=== PATIENT | female | born 1990 | race Caucasian/White ===

== ENCOUNTER → 2017-06-28 | Outpatient (CLI) | payer OTHER ==
[~2017-06-28] MED LIST: IOHEXOL 180 MG/ML 10 ML VIAL. ONE
--- NOTE | 2017-06-28 17:38 | PAIN ---
DATE OF SERVICE: 06/28/2017 INITIAL CONSULTATION FOR PAIN CLINIC CHIEF COMPLAINT: Headache. HISTORY OF PRESENT ILLNESS: This is a 27-year-old female who presents with history of pain following an attempted lumbar epidural catheter placement for labor pain about one week ago exactly. 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 The patient reports that since the day after her baby was born, she has had significant pain in the top of her head, back of her head, shoulders, neck, much worse with standing or sitting upright, much better with lying down to the point where the headache almost goes away when she is lying supine. The patient reports it has gotten slightly better over the past 2 to 3 days, but for the past 6 or 7 days has been fairly significant up to that point. The patient reports she has been pushing fluids, also caffeine, reports now the pain is constant, sharp, stabbing, throbbing, changes with position again, much better lying down, much worse with sitting or standing, where she is losing some ability to balance and dizziness because of the headache when she is walking. The patient reports no motor or sensory deficits. No bowel or bladder incontinence, no other complaints except for the headache. The patient reports her disability rating from 0-10, 10 being the worst, is an 8 with family and home responsibilities, recreation, social activity, occupation, sexual behavior and self-care and 3 with life support activities. The patient has tried ibuprofen as well as Fioricet, neither one was helping the pain much at all. PAST MEDICAL HISTORY: Significant for only previous childbirth, some ringing in the ears in the past as well as the patient in very good health. No previous surgeries. CURRENT MEDICATIONS: Include ibuprofen, Fioricet and vitamins. ALLERGIES: The patient has no known drug allergies. FAMILY HISTORY: Significant for hypertension, diabetes and cancers. SOCIAL HISTORY: The patient does not smoke, does not drink. Has 2 children now living at home, one 1-week old and is , lives with her spouse and lives in [place], [place]. REVIEW OF SYSTEMS: The patient's review of systems is positive for those items mentioned in history of present illness. All systems reviewed and otherwise negative. It is complete, full and well documented on the patient's chart. PHYSICAL EXAMINATION: VITAL SIGNS: Today, the patient's blood pressure here 126/77, pulse 72, respirations 18, temperature 98.0 degrees Fahrenheit. Height is 5 feet 5 inches, weighs 226 pounds. GENERAL: The patient is awake, alert, oriented, appropriate, very pleasant demeanor. HEENT: Head shows normocephalic, atraumatic. Extraocular movements are intact, symmetrical. Oral cavity, mucous membranes are moist and pink. Dentition is intact. NECK: Shows anterior throat supple without palpable lymphadenopathy noted. Swallow reflex is symmetrical. Neck shows full rotational motion of cervical spine, both laterally greater than 45 degrees, right and left as well as full extension, full forward flexion ____ without difficulty or any rigidity. CHEST: Shows normal on inspection. Breath sounds clear to auscultation bilaterally. HEART: Shows S1 and S2 clear. No murmurs auscultated. ABDOMEN: Obese, soft, , nontender, nondistended. BACK: Shows spine grossly midline. Normal appearing thoracic kyphotic curvature and lumbar lordotic curvature at approximately the L1 level, there are multiple areas of scabbed puncture sites from previous needle attempts and some minor bruising under the skin as well. The patient shows good rotation and motion of the lumbar spine without difficulty. Right and left lateral greater than 10 degrees as well as extension greater than 10 degrees, forward flexion to 45 degrees without difficulty. EXTREMITIES: Lower extremities show deep tendon reflexes at 2+ in the patellar, 1+ tendo calcaneus tendons. Motor exam is strong with 5/5 dorsiflexion, extension, quadriceps and hamstring flexion and equal. The patient is able to stand, stand on her toes, walks without any antalgic gait, does not appear to favor the right or left lower extremity. No assistive devices. IMPRESSION: This is a 27-year-old female with previous headaches from post-dural puncture with positional headache now without fevers, without nuchal rigidity, with improvement in supine position, worse with standing or sitting. PLAN: Options were discussed with the patient including conservative medical management and interventional techniques and as she has been doing conservative medical management and medication with hydration and caffeine without significant improvement to her estimation, she would like to proceed with intervention. We discussed a lumbar epidural blood patch using description as well as anatomical models to describe the procedure. Risks were then discussed including, but not limited to bleeding, infection, possibility of epidural hematoma and subsequent neurologic compromise, dural punctures and worsening of headache as well as poor results regarding pain control. The patient understands and wishes to proceed. The patient will return to clinic on an as needed basis at this time, ask to call the clinic in 1 week ____ progress report at that time. DIAGNOSES: Post-dural puncture headache. PROCEDURE: Lumbar epidural blood patch using local anesthetic under sterile prep and drape using a C-arm fluoroscopic guidance. The patient's L3-4 level was accessed in the midline translaminar approach with preservative-free normal saline loss of resistance technique without difficulty. Sterile blood draw on the right hand was taken, 10 mL of patient's own blood then sterilely transferred to the epidural space without difficulty. Needle was withdrawn, Band-Aid applied. The patient tolerated procedure well, had no complications. SHANNON BLOUNT MD DR: KAY/myla JOB#: [id number] / [id number]
== END | disposition home or self-care (01) ==
LOC: PNCL 08:42
PROVIDERS: ATTEND Anesthesiology
DX: G97.1 Other reaction to spinal and lumbar puncture (principal); Z83.3 Family history of diabetes mellitus; Z82.49 Family history of ischemic heart disease and other diseases of the circulatory system
CPT/HCPCS: 62273

== ENCOUNTER 2020-07-21 05:15 | Inpatient (IN) | payer MEDICAID ==
[~2020-07-21] VITALS: Ht 165.1 cm; Wt 113.4 kg
[2020-07-21 05:30] VITALS: BP 135/80
[2020-07-21] MEDS ORDERED: ACETAMINOPHEN 325 MG TABLET. PO PRN ×2 (05:30→06:45)
[2020-07-21] MEDS ORDERED: IV RINGERS,LACTATED 1000ML 1,000 ML IV SCH (06:31)
[2020-07-21 06:41] LABS: AMPHETAMINE/METHAMPHETAMINE NEG (NEG); BARBITURATES NEG (NEG); BENZODIAZEPINES NEG (NEG); CANNABINOIDS NEG (NEG); COCAINE NEG (NEG); METHADONE NEG (NEG); OPIATES NEG (NEG); PHENCYCLIDINE NEG (NEG)
[2020-07-21] MEDS ORDERED: ONDANSETRON PF 4 MG/2 ML VIAL. IVP PRN (06:45)
[2020-07-21] MEDS ORDERED: BUTORPHANOL 2 MG/ML VIAL. IVP PRN (06:45)
[2020-07-21] MEDS ORDERED: LIDOCAINE 1% PF 30 ML VIAL. INJ PRN (06:45)
[2020-07-21] MEDS ORDERED: OXYTOCIN 30 UNIT/500 ML PREMIX 500 ML IV PRN ×4 (06:45→10:45)
[2020-07-21] MEDS ORDERED: TERBUTALINE 1 MG/ML VIAL. SQ PRN (06:45)
[2020-07-21] MEDS ORDERED: 0.9 % SODIUM CHLORIDE 10 ML DISP.SYRIN. IV PRN ×2 (06:45→10:45)
[2020-07-21] MEDS ORDERED: IV RINGERS,LACTATED 1000ML 1,000 ML IV PRN (06:45)
[2020-07-21] MEDS ORDERED: IBUPROFEN 400 MG TABLET. PO PRN (06:45)
[2020-07-21 06:49] LABS: BILIRUBIN,URINE NEGATIVE (NEG); CLARITY,URINE CLEAR; COLOR,URINE YELLOW; NITRITE,URINE NEGATIVE (NEG); PH,URINE 6.5 (<5.0-8.0); PROTEIN,URINE NEGATIVE (NEG-TRACE); UROBILINOGEN,URINE 0.2 mg/dL (0.2 mg/dL)
[2020-07-21] MEDS ORDERED: PENICILLIN G K 5,000,000 UNIT in IV DEXTROSE 5% 100ML 100 ML IV ONE (07:00)
[2020-07-21 07:02] LABS: BACTERIA,URINE MODERATE /HPF (0-FEW); SQUAMOUS EPITHELIAL CELL,UR FEW /LPF
[2020-07-21 07:03] LABS: AMORPHOUS SEDIMENT,UR PRESENT /HPF
[2020-07-21] MEDS: IV RINGERS,LACTATED 1000ML 1,000 ML IV PRN ×3 (07:18→18:33)
[2020-07-21] MEDS: fentaNYL PF VIAL 100 MCG/2 ML VIAL IVP PRN ×2 (07:32→09:02)
[2020-07-21 07:34] LABS: BASO # 0.1 x10^3/uL (0.0-0.2); BASO % 1 % (0-3); EOS # 0.1 x10^3/uL (0.0-0.7); EOS % 1 % (0-3); HEMATOCRIT 39.3 % (36.0-47.0); HEMOGLOBIN 13.3 g/dL (12.0-15.5); LYMPH # 3.1 x10^3/uL (1.0-4.8); LYMPH % 19 % (24-48); MEAN CORPUSCULAR HEMOGLOBIN 29 pg (25-35); MEAN CORPUSCULAR HGB CONC 34 g/dL (31-37); MEAN CORPUSCULAR VOLUME 87 fL (79-100); MONO # 0.8 x10^3/uL (0.0-1.1); MONO % 5 % (0-9); NEUT # 12.3 x10^3/uL (1.8-7.7); NEUT % 75 % (31-73); PLATELET COUNT 258 x10^3/uL (140-400); RED BLOOD COUNT 4.53 x10^6/uL (3.50-5.40); RED CELL DISTRIBUTION WIDTH 15.7 % (11.5-14.5); WHITE BLOOD COUNT 16.4 x10^3/uL (4.0-11.0)
[2020-07-21] MEDS ORDERED: OXYTOCIN PREMIX 30 UNIT/500 ML NS BAG. IV ONE (08:00)
--- NOTE | 2020-07-21 08:42 | PDOC1 ---
OB - History Hx of Present Care: Good Care Ultrasounds: Normal mid trimester US Obstetrical Complications: None Medical Complications: None Past Family/Social History * Past Medical, Surgical, Family and Obstetric Histories reviewed from chart. Rubella: Immune RPR/VDRL: Negative GBS Status: Positive HBsAG: Negative OB - Chief Complaint & HPI Date of Admission: Date of Admission: Jul 21, 2020 at 05:15 Chief Complaint/History : 4 Para: 2 EGA: 40 Reason for admission: active labor Admission Nurse Assessment Rev: Yes OB - Admission Exam Physical Exam Vitals: VS - Last 72 Hours, by Label Date Time Temp Pulse Resp B/P (MAP) Pulse Ox O2 Delivery O2 Flow Rate FiO2 07/21/20 07:32 22 Room Air 07/21/20 05:30 98.0 135 20 135/80 (98) 97 98.0 HEENT: Normal Heart: Regular Rate Lungs: Clear Abdomen: Gravid, Non tender, Soft Extremities: Edema Reflexes: Normal Cervical Dilatation: 2cm Effacement: 75% Station: -3 Membranes: Intact Heart Rate: Normal Accelerations: Accelerations Present Decelerations: No decelerations Contractions on Admission: < 5 Minutes Apart Intensity: Firm Text A: 40 wks IUP GBS positive P: Admit for labor management. Start Pen G prophylaxis for GBS status. LISS SANDOVAL Jr, MD Jul 21, 2020 08:42
[2020-07-21] MEDS ORDERED: CITRIC ACID/SODIUM CITRATE 30 ML SOLUTION. PO ONE (09:15)
[2020-07-21] MEDS ORDERED: MORPHINE PF 10 MG/10 ML AMPUL. ONE (09:28)
[2020-07-21] MEDS ORDERED: fentaNYL PF VIAL 100 MCG/2 ML VIAL ONE (09:28)
[2020-07-21] MEDS ORDERED: MIDAZOLAM HCL/PF 2 MG/2 ML VIAL. ONE (09:50)
[2020-07-21] MEDS ORDERED: KETAMINE HCL IN NACL, ISO-OSM 50 MG/5 ML SYRINGE ONE (09:50)
[2020-07-21] MEDS ORDERED: OXYTOCIN 10 UNIT/ML VIAL. ONE ×4 (10:04)
[2020-07-21] MEDS ORDERED: PHENYLEPHRINE in 0.9% NACL PF 1 MG/10 ML SYRINGE. IV ONE ×2 (10:04→10:10)
[2020-07-21] MEDS ORDERED: MAG HYDROX/ALUMINUM HYD/SIMETH 30 ML ORAL.SUSP PO PRN (10:45)
[2020-07-21] MEDS ORDERED: ONDANSETRON PF 4 MG/2 ML VIAL. IV PRN (10:45)
[2020-07-21] MEDS ORDERED: SIMETHICONE 80 MG TAB.CHEW PO PRN (10:45)
[2020-07-21] MEDS ORDERED: diphenhydrAMINE ORAL ELIXIR 12.5 MG/5 ML ML PO PRN (10:45)
[2020-07-21] MEDS ORDERED: ZOLPIDEM 5 MG TABLET. PO PRN (10:45)
--- NOTE | 2020-07-21 10:45 | PDOC4 ---
OB Operative Note Date: Jul 21, 2020 PRE OP DIAGNOSIS: Other (40 wks IUP, Face Presentation) POST OP DIAGNOSIS: Other (Same) OPERATION PERFORMED: [facility] Surgeon Dr. Kyle Anesthesia: Regional (Spinal) Blood Loss 800 ml Specimen placenta and OB Findings: Position (Vertex), Sex (Male), (), Weight (7 Lbs. 11 oz) Complications none Additional Remarks pt. LISS Love Jr, MD Jul 21, 2020 10:44
[2020-07-21] MEDS ORDERED: ceFAZolin SODIUM IV Push 1 GM VIAL. IVP ONE (10:51)
[2020-07-21] MEDS: PENICILLIN G K 2,500,000 UNIT in IV DEXTROSE 5% 50 ML IV SCH ×2 (11:00→15:00)
[2020-07-21] MEDS ORDERED: KETOROLAC 30 MG/ML VIAL. IV PRN (11:30)
[2020-07-21] MEDS: MULTIVITAMIN with MINERAL TABLET. PO SCH (12:00)
[2020-07-21] MEDS: KETOROLAC 30 MG/ML VIAL. IV PRN ×2 (12:19→18:20)
[2020-07-21 14:15] VITALS: BP 106/58
--- NOTE | 2020-07-21 14:15 | NUR ---
Pt to room 337 per bed S/P C/S. Pt alert and oriented, at bedside. Pt bleeding minimal and pt denies pain at this time. Call light in reach, ice chips given per pts request.
[2020-07-21 15:15] VITALS: BP 111/65
[2020-07-21] MEDS: FERROUS SULFATE 325 MG TABLET. PO SCH (17:00)
--- NOTE | 2020-07-21 17:35 | OP ---
DATE OF SURGERY: 07/21/2020 PREOPERATIVE DIAGNOSES: 1. A 40 weeks' intrauterine . 2. Persistent face presentation. POSTOPERATIVE DIAGNOSES: 1. A 40 weeks' intrauterine . 2. Persistent face presentation. PROCEDURE: Primary low transverse section. SURGEON: Liss Kyle MD ANESTHESIA: Spinal. ESTIMATED BLOOD LOSS: 800 mL. COMPLICATIONS: None. FINDINGS: Viable male , Apgars 7, 8, 9. Weight 7 pounds 11 ounces. Three-vessel cord placenta delivered manually. SUMMARY: A 30-year-old 4, para 2 at 40 weeks, presented in active labor. The patient progressed up to 7 cm; however, she had a face presentation that continued to persist with omentum posterior. The patient was counseled on risks, benefits and expectations for section and voiced clear understanding to proceed. DESCRIPTION OF PROCEDURE: The patient was taken to surgery suite and placed in dorsal supine position. She was prepped with ChloraPrep and draped in sterile fashion. After adequate anesthesia, Pfannenstiel skin incision was made with scalpel down to the fascia. Fascia was extended laterally using curved Faith scissors. The superior edge of fascia was grasped with two Joaquina clamps and dissected free of the abdominal rectus muscle using blunt dissection along with Bovie cautery. The same process took place inferiorly. The abdominal rectus muscle dissected bluntly at the midline. The peritoneum was grasped with 2 hemostats and entered sharply with Metzenbaum scissors. This incision was extended superiorly as well as inferiorly. The Jarad ring retractor was placed. Low transverse hysterotomy incision was made with scalpel down to the amniotic sac. Hysterotomy incision was extended laterally and superiorly digitally. The 's head was then palpated and rotated around. Vacuum was attempted to elevate the head; however, after one pump off, we continued with manual manipulation of the head, in which once the head was palpated firmly and fundal pressure was provided, the head was delivered, atraumatic manner. With additional fundal pressure, the anterior shoulder was delivered followed by posterior shoulder. Rest of the male was delivered. was suctioned with a bulb syringe orally and nasally. The umbilical cord was clamped twice and cut and viable male infant was handed to waiting nursing staff. Umbilical cord blood as well as arterial pH was obtained. Three-vessel cord placenta was delivered manually. The uterus was then exteriorized and cleared of clot and debris with moist lap. Hysterotomy incision was reapproximated using #1 Vicryl suture in running locked fashion, imbricated layer of #1 Vicryl suture in running fashion was performed. About 4 [id number] sutures were placed near the midline in the left apex of the hysterotomy incision including the left uterine artery ligation using #1 Vicryl suture. The hysterotomy incision was then hemostatic. The uterus palpated firm. Fallopian tubes and ovaries appeared normal bilaterally. Posterior cul-de-sac was cleared of clot and debris with a moist lap. The uterus was then returned to the abdomen. Pericolic gutters were cleared of clot and debris with a moist lap. The Jarad ring retractor was removed. The hysterotomy incision was reviewed and was hemostatic. Peritoneum was reapproximated using #1 Vicryl suture in running fashion. Abdominal rectus muscle was reapproximated using #1 Vicryl suture in running fashion. Fascia was reapproximated using Stratafix in running fashion. Skin was reapproximated using 4-0 Vicryl suture in subcuticular manner. The patient tolerated the procedure well and was taken to recovery room in stable condition. Sponge and needle count correct x 3. LISS KYLE MD DR: LOIDA/myla JOB#: [id number] / [id number]
[2020-07-21 18:09] VITALS: BP 94/49
[2020-07-21 22:27] VITALS: BP 96/41
[2020-07-22] MEDS: KETOROLAC 30 MG/ML VIAL. IV PRN (02:19)
[2020-07-22 02:27] VITALS: BP 99/53
[2020-07-22 06:07] VITALS: BP 86/44
[2020-07-22 07:08] LABS: BASO # 0.1 x10^3/uL (0.0-0.2); BASO % 1 % (0-3); EOS # 0.1 x10^3/uL (0.0-0.7); EOS % 1 % (0-3); HEMATOCRIT 29.8 % (36.0-47.0); LYMPH # 2.9 x10^3/uL (1.0-4.8); LYMPH % 26 % (24-48); MEAN CORPUSCULAR HEMOGLOBIN 30 pg (25-35); MEAN CORPUSCULAR HGB CONC 34 g/dL (31-37); MEAN CORPUSCULAR VOLUME 88 fL (79-100); MONO # 0.7 x10^3/uL (0.0-1.1); MONO % 7 % (0-9); NEUT # 7.5 x10^3/uL (1.8-7.7); NEUT % 66 % (31-73); PLATELET COUNT 179 x10^3/uL (140-400); RED BLOOD COUNT 3.38 x10^6/uL (3.50-5.40); RED CELL DISTRIBUTION WIDTH 15.4 % (11.5-14.5); WHITE BLOOD COUNT 11.3 x10^3/uL (4.0-11.0)
[2020-07-22] MEDS: oxyCODONE/APAP 5/325 1 TAB TABLET PO PRN ×4 (08:22→21:35)
[2020-07-22] MEDS: DOCUSATE SODIUM 100 MG CAPSULE. PO PRN (08:22)
[2020-07-22] MEDS: FERROUS SULFATE 325 MG TABLET. PO SCH ×2 (08:22→17:31)
[2020-07-22] MEDS: MULTIVITAMIN with MINERAL TABLET. PO SCH (08:22)
[2020-07-22 10:15] VITALS: BP 112/65
[2020-07-22] MEDS: IBUPROFEN 400 MG TABLET. PO PRN ×2 (12:47→20:55)
--- NOTE | 2020-07-22 16:26 | PDOC ---
OB Progress Note Date of Service 07/22/20 Time of Evaluation 1625 Notes Pt. feeling well. No complaints. Pain controlled. Pt. tolerating regular diet, ambulating in room and voiding without difficulty. Lab Laboratory Tests Test 07/21/20 06:15 07/21/20 06:20 07/21/20 07:21 07/22/20 06:35 SARS-CoV-2 Antigen (Rapid) Negative (NEGATIVE) Urine Collection Type Unknown Urine Color Yellow Urine Clarity Clear Urine pH 6.5 (<5.0-8.0) Urine Specific [place] 1.010 (1.000-1.030) Urine Protein Negative mg/dL (NEG-TRACE) Urine Glucose (UA) Negative mg/dL (NEG) Urine Ketones (Stick) Negative mg/dL (NEG) Urine Blood Small (NEG) Urine Nitrite Negative (NEG) Urine Bilirubin Negative (NEG) Urine Urobilinogen Dipstick 0.2 mg/dL (0.2 mg/dL) Urine Leukocyte Esterase Moderate (NEG) Urine RBC 3-5 /HPF (0-2) Urine WBC 11-20 /HPF (0-4) Urine Squamous Epithelial Cells Few /LPF Urine Amorphous Sediment Present /HPF Urine Bacteria Moderate /HPF (0-FEW) Urine Opiates Screen Neg (NEG) Urine Methadone Screen Neg (NEG) Urine Barbiturates Neg (NEG) Urine Phencyclidine Screen Neg (NEG) Urine Amphetamine/Methamphetamine Neg (NEG) Urine Benzodiazepines Screen Neg (NEG) Urine Cocaine Screen Neg (NEG) Urine Cannabinoids Screen Neg (NEG) Urine Ethyl Alcohol Neg (NEG) White Blood Count 16.4 x10^3/uL (4.0-11.0) 11.3 x10^3/uL (4.0-11.0) Red Blood Count 4.53 x10^6/uL (3.50-5.40) 3.38 x10^6/uL (3.50-5.40) Hemoglobin 13.3 g/dL (12.0-15.5) 10.0 g/dL (12.0-15.5) Hematocrit 39.3 % (36.0-47.0) 29.8 % (36.0-47.0) Mean Corpuscular Volume 87 fL (79-100) 88 fL (79-100) Mean Corpuscular Hemoglobin 29 pg (25-35) 30 pg (25-35) Mean Corpuscular Hemoglobin Concent 34 g/dL (31-37) 34 g/dL (31-37) Red Cell Distribution Width 15.7 % (11.5-14.5) 15.4 % (11.5-14.5) Platelet Count 258 x10^3/uL (140-400) 179 x10^3/uL (140-400) Neutrophils (%) (Auto) 75 % (31-73) 66 % (31-73) Lymphocytes (%) (Auto) 19 % (24-48) 26 % (24-48) Monocytes (%) (Auto) 5 % (0-9) 7 % (0-9) Eosinophils (%) (Auto) 1 % (0-3) 1 % (0-3) Basophils (%) (Auto) 1 % (0-3) 1 % (0-3) Neutrophils # (Auto) 12.3 x10^3/uL (1.8-7.7) 7.5 x10^3/uL (1.8-7.7) Lymphocytes # (Auto) 3.1 x10^3/uL (1.0-4.8) 2.9 x10^3/uL (1.0-4.8) Monocytes # (Auto) 0.8 x10^3/uL (0.0-1.1) 0.7 x10^3/uL (0.0-1.1) Eosinophils # (Auto) 0.1 x10^3/uL (0.0-0.7) 0.1 x10^3/uL (0.0-0.7) Basophils # (Auto) 0.1 x10^3/uL (0.0-0.2) 0.1 x10^3/uL (0.0-0.2) Treponema pallidum Antibody Nonreactive (Nonreactive) Laboratory Tests Test 07/22/20 06:35 White Blood Count 11.3 x10^3/uL (4.0-11.0) Red Blood Count 3.38 x10^6/uL (3.50-5.40) Hemoglobin 10.0 g/dL (12.0-15.5) Hematocrit 29.8 % (36.0-47.0) Mean Corpuscular Volume 88 fL (79-100) Mean Corpuscular Hemoglobin 30 pg (25-35) Mean Corpuscular Hemoglobin Concent 34 g/dL (31-37) Red Cell Distribution Width 15.4 % (11.5-14.5) Platelet Count 179 x10^3/uL (140-400) Neutrophils (%) (Auto) 66 % (31-73) Lymphocytes (%) (Auto) 26 % (24-48) Monocytes (%) (Auto) 7 % (0-9) Eosinophils (%) (Auto) 1 % (0-3) Basophils (%) (Auto) 1 % (0-3) Neutrophils # (Auto) 7.5 x10^3/uL (1.8-7.7) Lymphocytes # (Auto) 2.9 x10^3/uL (1.0-4.8) Monocytes # (Auto) 0.7 x10^3/uL (0.0-1.1) Eosinophils # (Auto) 0.1 x10^3/uL (0.0-0.7) Basophils # (Auto) 0.1 x10^3/uL (0.0-0.2) Medications Current Medications Ringer's Solution 1,000 ml @ 125 mls/hr Q8H PRN IV hydration Last administered on 07/21/20at 18:33; Start 07/21/20 at 05:30 Acetaminophen (Tylenol) 650 mg PRN Q6HRS PRN PO MILD PAIN, TEMP > 100.5'F; Start 07/21/20 at 05:30 Sodium Chloride (Normal Saline Flush) 3 ml QSHIFT PRN IV AFTER MEDS AND BLOOD DRAWS; Start 07/21/20 at 06:45 Ringer's Solution 1,000 ml @ 125 mls/hr Q8H PRN IV hydration; Start 07/21/20 at 06:45; Status Cancel Butorphanol Tartrate (Stadol) 2 mg PRN Q1HR PRN IVP Severe labor pain; Start 07/21/20 at 06:45 Fentanyl Citrate (Fentanyl 2ml Vial) 100 mcg PRN Q30MIN PRN IVP Severe pain Last administered on 07/21/20at 09:02; Start 07/21/20 at 06:45 Acetaminophen (Tylenol) 650 mg PRN Q6HRS PRN PO MILD PAIN / TEMP > 100.3'F; Start 07/21/20 at 06:45; Status Cancel Ondansetron HCl (Zofran) 8 mg PRN Q4HRS PRN IVP NAUSEA/VOMITING 1ST CHOICE; Start 07/21/20 at 06:45; Status Cancel Terbutaline Sulfate (Brethine) 0.25 mg 1X PRN PRN SQ SEE COMMENTS; Start 07/21/20 at 06:45; Stop 07/22/20 at 06:44; Status DC Lidocaine HCl (Xylocaine 1% Pf 30ml Vial) 30 ml 1X PRN PRN INJ SEE COMMENTS; Start 07/21/20 at 06:45; Stop 07/23/20 at 06:44 Oxytocin/Sodium Chloride 500 ml @ 0 mls/hr CONT PRN PRN IV Post delivery bl eeding; Start 07/21/20 at 06:45 Ibuprofen (Motrin) 800 mg PRN Q6HRS PRN PO MODERATE PAIN 4-6; Start 07/21/20 at 06:45; Stop 07/21/20 at 11:03; Status DC Penicillin G Potassium [id number] unit/Dextrose 100 ml @ 100 mls/hr 1X ONCE IV Last administered on 07/21/20at 07:18; Start 07/21/20 at 07:00; Stop 07/21/20 at 07:59; Status DC Penicillin G Potassium [id number] unit/Dextrose 50 ml @ 100 mls/hr Q4H IV ; Start 07/21/20 at 11:00; Stop 07/22/20 at 10:04; Status DC Ringer's Solution 1,000 ml @ 125 mls/hr Q8H IV ; Start 07/21/20 at 06:31; Status Cancel Oxytocin/Sodium Chloride 500 ml @ 0 mls/hr CONT PRN IV SEE I/O RECORD; Start 07/21/20 at 06:45 Oxytocin/Sodium Chloride 500 ml @ 0 mls/hr CONT PRN PRN IV Post delivery bleeding; Start 07/21/20 at 06:45; Status Cancel Cefazolin Sodium/ Dextrose 50 ml @ 100 mls/hr 1X ONCE IV Last administered on 07/21/20at 09:12; Start 07/21/20 at 09:15; Stop 07/21/20 at 09:44; Status DC Citric Acid/ Sodium Citrate (Bicitra) 30 ml 1X ONCE PO Last administered on 07/21/20at 09:18; Start 07/21/20 at 09:15; Stop 07/21/20 at 09:16; Status DC Morphine Sulfate (Morphine Preservative Free) 10 mg STK-MED ONCE .ROUTE ; Start 07/21/20 at 09:28; Stop 07/21/20 at 09:28; Status DC Fentanyl Citrate (Fentanyl 2ml Vial) 100 mcg STK-MED ONCE .ROUTE ; Start 07/21/20 at 09:28; Stop 07/21/20 at 09:28; Status DC Ketamine HCl (Ketamine) 50 mg STK-MED ONCE .ROUTE ; Start 07/21/20 at 09:50; Stop 07/21/20 at 09:50; Status DC Midazolam HCl (Versed) 2 mg STK-MED ONCE .ROUTE ; Start 07/21/20 at 09:50; Stop 07/21/20 at 09:50; Status DC Oxytocin (Pitocin) 10 unit STK-MED ONCE .ROUTE ; Start 07/21/20 at 10:04; Stop 07/21/20 at 10:05; Status DC Oxytocin (Pitocin) 10 unit STK-MED ONCE .ROUTE ; Start 07/21/20 at 10:04; Stop 07/21/20 at 10:05; Status DC Oxytocin (Pitocin) 10 unit STK-MED ONCE .ROUTE ; Start 07/21/20 at 10:04; Stop 07/21/20 at 10:05; Status DC Oxytocin (Pitocin) 10 unit STK-MED ONCE .ROUTE ; Start 07/21/20 at 10:04; Stop 07/21/20 at 10:05; Status DC Phenylephrine HCl (PHENYLEPHRINE in 0.9% NACL PF) 1 mg STK-MED ONCE IV ; Start 07/21/20 at 10:04; Stop 07/21/20 at 10:05; Status DC Phenylephrine HCl (PHENYLEPHRINE in 0.9% NACL PF) 1 mg STK-MED ONCE IV ; Start 07/21/20 at 10:10; Stop 07/21/20 at 10:11; Status DC Sodium Chloride (Normal Saline Flush) 3 ml QSHIFT PRN IV AFTER MEDS AND BLOOD DRAWS; Start 07/21/20 at 10:45 Oxytocin/Sodium Chloride 500 ml @ 125 mls/hr CONT PRN IV EXCESSIVE POST- BLEEDING; Start 07/21/20 at 10:45; Stop 07/21/20 at 18:44; Status DC Ibuprofen (Motrin) 800 mg PRN Q8HRS PRN PO INFLAMMATION Last administered on 07/22/20at 12:47; Start 07/21/20 at 10:45 Ondansetron HCl (Zofran) 4 mg PRN Q6HRS PRN IV NAUSEA/VOMITING; Start 07/21/20 at 10:45 Docusate Sodium (Colace) 100 mg PRN BID PRN PO HARD STOOL Last administered on 07/22/20at 08:22; Start 07/21/20 at 10:45 Al Hydroxide/Mg Hydroxide (Mylanta Plus Xs) 30 ml PRN Q4HRS PRN PO HEARTBURN / GAS; Start 07/21/20 at 10:45 Simethicone (Gas-X) 80 mg PRN AFTMEALHC PRN PO GAS / BLOATING; Start 07/21/20 at 10:45 Diphenhydramine HCl (Benadryl Oral Elixir) 12.5 mg PRN Q6HRS PRN PO ITCHING; Start 07/21/20 at 10:45 Ferrous Sulfate (Feosol) 325 mg BIDWMEALS PO Last administered on 07/22/20at 08:22; Start 07/21/20 at 17:00 Zolpidem Tartrate (Ambien) 5 mg PRN QHS PRN PO INSOMNIA, MAY REPEAT X1; Start 07/21/20 at 10:45 Oxycodone/ Acetaminophen (Percocet 5/325) 2 tab PRN Q4HRS PRN PO MODERATE PAIN, SEVERE PAIN Last administered on 07/22/20at 12:47; Start 07/21/20 at 10:45 Ketorolac Tromethamine (Toradol 30mg Vial) 30 mg PRN Q6HRS PRN IV MODERATE PAIN Last administered on 07/22/20at 02:19; Start 07/21/20 at 10:45; Stop 07/26/20 at 10:44 Multivitamins (Thera M Plus) 1 tab DAILY PO Last administered on 07/22/20at 08:22; Start 07/21/20 at 12:00 Cefazolin Sodium (Ancef) 1 gm STK-MED ONCE IVP ; Start 07/21/20 at 10:51; Stop 07/21/20 at 10:51; Status DC Ketorolac Tromethamine (Toradol 30mg Vial) 30 mg PRN Q6HRS PRN IV PAIN; Start 07/21/20 at 11:30; Stop 07/26/20 at 11:29; Status Cancel Oxytocin/Sodium Chloride (Oxytocin Premix Infusion) 30 unit STK-MED ONCE IV ; Start 07/21/20 at 08:00; Stop 07/21/20 at 12:41; Status DC Exam Abd: soft, mild tenderness, fundus firm Incision site: clean, dry and intact Assessment POD#1 s/p c/s Plan of Care: Continue current Tx, Mgmt LISS SANDOVAL Jr, MD Jul 22, 2020 16:26
[2020-07-22 18:10] VITALS: BP 132/73
[2020-07-22] MEDS: MAGNESIUM HYDROXIDE 2,400 MG/30 ML ORAL.SUSP. PO PRN (20:55)
[2020-07-22 21:05] VITALS: BP 116/65
[2020-07-23 02:00] VITALS: BP 122/58
[2020-07-23] MEDS: oxyCODONE/APAP 5/325 1 TAB TABLET PO PRN ×4 (03:51→17:25)
[2020-07-23 06:01] VITALS: BP 120/66
[2020-07-23] MEDS: DOCUSATE SODIUM 100 MG CAPSULE. PO PRN (07:56)
[2020-07-23] MEDS: MULTIVITAMIN with MINERAL TABLET. PO SCH (07:56)
[2020-07-23] MEDS: IBUPROFEN 400 MG TABLET. PO PRN ×2 (07:57→15:49)
[2020-07-23] MEDS: FERROUS SULFATE 325 MG TABLET. PO SCH (07:57)
[2020-07-23 11:30] VITALS: BP 115/67
[2020-07-23] MEDS: MAGNESIUM HYDROXIDE 2,400 MG/30 ML ORAL.SUSP. PO PRN (15:48)
--- NOTE | 2020-07-23 16:48 | PDOC3 ---
OB DISCHARGE SUMMARY DATE OF ADMISSION: 07/21/20 DATE OF DISCHARGE: 07/23/20 REASON FOR ADMISSION: Onset of labor INTRAPARTUM PROCEDURES: : Low Cerv Trans (face presentation) DISCHARGE DIAGNOSIS: Term Delivered DISCHARGE INFORMATION: Activity (ad toño), Diet (regular), Instructions (pelvic rest x 6 wks, no driving x 2 wks, no lifting > 20 lbs. x 6 wks) HOSPITAL COURSE Term gestation delivered via section due to face presentation without complications. LISS SANDOVAL Jr, MD Jul 23, 2020 16:48
[2020-07-23] MEDS ORDERED: DOCU-153 PO (16:51)
[2020-07-23] MEDS ORDERED: OXYC1TAB15 PO (16:51)
[2020-07-23] MEDS ORDERED: IBUP-1027 PO (16:51)
--- NOTE | 2020-07-23 16:51 | DISCH ---
DISCHARGE INSTRUCTIONS Condition on Discharge Condition on Discharge: Stable Activity After Discharge Activity Instructions for Disc: Activity as tolerated Lifting Instructions after Dis: No heavy lifting Driving Instructions after Dis: No driving for 2 weeks Diet after Discharge Diet after Discharge: Regular Contacting the DRAlyssa after DC Call your doctor for: Concerns you may have Follow-Up Follow up with: Dr. Kyle in 2 wks LISS KYLE Jr, MD Jul 23, 2020 16:51
[2020-07-23 17:00] VITALS: BP 118/69
== END 2020-07-23 18:04 | disposition home or self-care (01) | DRG 787 ==
LOC: 3 SO LND 05:15 → OBSVTOIN 05:15 → 3 SO LND 05:27 → 3 NORTH 14:24
PROVIDERS: ADMIT Obstetrics & Gynecology; ATTEND Obstetrics & Gynecology
PROC: 10D00Z1 Extraction of Products of Conception, Low, Open Approach (ICD-10-PCS; principal; 2020-07-21)
DX: O32.3XX0 Maternal care for face, brow and chin presentation, not applicable or unspecified (principal); R71.0 Precipitous drop in hematocrit; O99.824 Streptococcus B carrier state complicating childbirth; Z3A.40 40 weeks gestation of pregnancy; Z37.0 Single live birth; Z20.828 Contact with and (suspected) exposure to other viral communicable diseases
CPT/HCPCS: 36415; 80307; 81001; 85025; 86592; 86850; 86900; 86901; 87086; 87426; J0690; J1885; J2250; J2274; J2370; J2540; J2590; J3010; J7060; J7120; G0378; U0003-CS

== ENCOUNTER 2021-07-24 22:38 | Emergency (ER) | payer MEDICAID ==
[~2021-07-24 22:38] MED LIST changes: +DOCU-148 PO; +IBUP-1027 PO; -IOHEXOL 180 MG/ML 10 ML VIAL. ONE; +OXYC1TAB15 PO
== END 2021-07-25 00:23 | disposition left against medical advice (07) ==
LOC: ER 22:38
DX: O26.899 Other specified pregnancy related conditions, unspecified trimester (principal); R10.2 Pelvic and perineal pain; Z3A.00 Weeks of gestation of pregnancy not specified; Z53.21 Procedure and treatment not carried out due to patient leaving prior to being seen by health care provider